=== PATIENT | female | born 1985 | race American Indian/Alaskan Native ===

== ENCOUNTER 2021-07-17 08:08 | Emergency (ER) | payer MEDICAID ==
--- NOTE | 2021-07-17 10:27 | Emergency Department Report ---
ED ENT HPI - General Chief complaint: Headache Stated complaint: HEADACHE Time Seen by Provider: 07/17/21 10:22 Source: patient, EMS Mode of arrival: Stretcher Limitations: No Limitations - History of Present Illness Initial comments: 36-year-old morbid obese -[place] female presents to the emergency room for nasal congestion itchy throat and body aches since Thursday. Patient states has been taking ibuprofen and sinus medicine. She denies any fever chills no nausea no vomiting no chest pain or shortness of breath. Patient is unvaccinated for COVID and flu. She has not recently tested for COVID. Onset/Timin -: days(s) Location: nose, throat Severity scale (0 -10): 4 Consistency: intermittent Improves with: none Worsens with: none Associated Symptoms: rhinorrhea. denies: fever, cough, gum swelling, toothache, discharge from ear - Related Data Home Medications Medication Instructions Recorded Confirmed Last Taken Sertraline [Zoloft] 50 mg PO QDAY 02/18/21 02/18/21 02/15/21 amLODIPine 5 mg PO DAILY 02/18/21 02/18/21 02/15/21 Previous Rx's Medication Instructions Recorded Last Taken Type Pantoprazole [Protonix TAB] 20 mg PO QDAY #14 tablet. 02/19/21 Unknown Rx oxyCODONE /ACETAMINOPHEN [Percocet 1 tab PO BID PRN #10 tablet 02/19/21 Unknown Rx 5/325 mg] Allergies Allergy/AdvReac Type Severity Reaction Status Date / Time No Known Allergies Allergy Verified 07/17/21 08:10 ED Dental HPI - General Chief complaint: Headache Stated complaint: HEADACHE Time Seen by Provider: 07/17/21 10:22 Source: patient, EMS Mode of arrival: Stretcher Limitations: No Limitations - Related Data Home Medications Medication Instructions Recorded Confirmed Last Taken Sertraline [Zoloft] 50 mg PO QDAY 02/18/21 02/18/21 02/15/21 amLODIPine 5 mg PO DAILY 02/18/21 02/18/21 02/15/21 Previous Rx's Medication Instructions Recorded Last Taken Type Pantoprazole [Protonix TAB] 20 mg PO QDAY #14 tablet. 02/19/21 Unknown Rx oxyCODONE /ACETAMINOPHEN [Percocet 1 tab PO BID PRN #10 tablet 02/19/21 Unknown Rx 5/325 mg] Allergies Allergy/AdvReac Type Severity Reaction Status Date / Time No Known Allergies Allergy Verified 07/17/21 08:10 ED Review of Systems ROS: Stated complaint: HEADACHE Other details as noted in HPI Constitutional: weakness. denies: fever Musculoskeletal: myalgia ED Past Medical Hx - Past Medical History Hx Hypertension: Yes Hx Sickle Cell Disease: No - Social History Smoking Status: Never Smoker Substance Use Type: None - Medications Home Medications: Home Medications Medication Instructions Recorded Confirmed Last Taken Type Sertraline [Zoloft] 50 mg PO QDAY 02/18/21 02/18/21 02/15/21 History amLODIPine 5 mg PO DAILY 02/18/21 02/18/21 02/15/21 History Pantoprazole [Protonix TAB] 20 mg PO QDAY #14 tablet. 02/19/21 Unknown Rx oxyCODONE /ACETAMINOPHEN [Percocet 1 tab PO BID PRN #10 tablet 02/19/21 Unknown Rx 5/325 mg] ED Physical Exam - General Limitations: No Limitations General appearance: alert, in no apparent distress - Head Head exam: Present: atraumatic, normocephalic - Eye Eye exam: Present: normal appearance - ENT ENT exam: Present: mucous membranes moist - Expanded ENT Exam Expanded TM/Canal exam: Cerumen Impaction: Right TM, Left TM Throat exam: Positive: normal inspection. Negative: tonsillar erythema, tonsillar exudate, R peritonsillar mass - Neck Neck exam: Present: normal inspection - Respiratory Respiratory exam: Present: normal lung sounds bilaterally. Absent: respiratory distress - Cardiovascular Cardiovascular Exam: Present: regular rate, normal rhythm. Absent: systolic murmur, diastolic murmur, rubs, gallop - GI/Abdominal GI/Abdominal exam: Present: soft, normal bowel sounds - Extremities Exam Extremities exam: Present: normal inspection - Back Exam Back exam: Present: normal inspection - Neurological Exam Neurological exam: Present: alert, oriented X3, normal gait - Psychiatric Psychiatric exam: Present: normal affect, normal mood - Skin Skin exam: Present: warm, dry, intact, normal color. Absent: rash ED Course Vital Signs 07/17/21 08:08 Temperature 98.6 F Pulse Rate 80 Blood Pressure 130/20 [Left] O2 Sat by Pulse 99 Oximetry ED Medical Decision Making - Medical Decision Making 36-year-old morbid obese -[place] female presents to the emergency room for nasal congestion itchy throat and body aches since Thursday. Patient states has been taking ibuprofen and sinus medicine. She denies any fever chills no nausea no vomiting no chest pain or shortness of breath. Patient is unvaccinated for COVID and flu. She has not recently tested for COVID. Patient has stable vital signs examination is nonactionable. Recommend patient to get COVID tested she can take [id number] sinus medication Tylenol or ibuprofen as needed for body aches. Critical care attestation.: If time is entered above; I have spent that time in minutes in the direct care of this critically ill patient, excluding procedure time. ED Disposition Clinical Impression: Allergic rhinitis, Viral illness Disposition: HOME / SELF CARE / HOMELESS Is pt being admited?: No Does the pt Need Aspirin: No Condition: Stable Instructions: Viral Respiratory Infection, [id number] Additional Instructions: Your symptoms appear most consistent with a nonspecific viral syndrome. However, given this current pandemic, COVID-19 is in the differential of possibilities. Despite your previous negative COVID-19 test, I do recommend repeat outpatient Covid 19 testing. In the meantime, isolate/quarantine yourself and stay away from anyone who is elderly, immunocompromised or chronically ill. You can use ibuprofen every 6-8 hours and Tylenol every 4-8 hours, using the dosing on the back of the bottle, as needed for any fever or body aches. Return to the emergency department with any worsening of your symptoms, development of chest pain or shortness of breath, or with any acute distress. Referrals: Your, primary care provider [Other] - 3-5 Days Time of Disposition: 10:26
[2021-07-17 11:02] VITALS: BP 141/65
== END 2021-07-17 11:04 | disposition home or self-care (01) ==
LOC: ED 08:08
DX: J30.9 Allergic rhinitis, unspecified (principal); B34.9 Viral infection, unspecified; I10 Essential (primary) hypertension
CPT/HCPCS: 99283